=== PATIENT | male | born 1995 | race Caucasian/White ===

== ENCOUNTER 2018-03-07 23:13 | Emergency (ER) | payer OTHER ==
[~2018-03-07] VITALS: Ht 177.8 cm; Wt 57.2 kg
[2018-03-07 23:46] VITALS: BP 124/76
[2018-03-07] MEDS ORDERED: IBUPROFEN600 MG ORAL (23:49)
[2018-03-07 23:55] VITALS: BP 124/76
--- NOTE | 2018-03-08 06:00 | Emergency Room Report ---
History of Present Illness General Chief Complaint: Sore Throat Source: Patient Present Illness HPI 22-year-old male presents ED complaining of sore throat. Started 2 days ago. Pain is mild, 2 out of 10, nonradiating. Denies fevers or chills. Denies cough. Denies runny nose. Denies sick contacts or recent travel. No other aggravating relieving factors. Denies any other associated symptoms Allergies: Coded Allergies: SHELLFISH DERIVED (Verified Allergy, Unknown, 03/07/18) SHRIMP (Verified Allergy, Unknown, 03/07/18) Patient History Past Medical History: none Past Surgical History: none Pertinent Family History: none Social History: Denies: smoking, alcohol use, drug use Immunizations: UTD Reviewed Nursing Documentation: PMH: Agreed; PSxH: Agreed Nursing Documentation-PMH Past Medical History: No Stated History Review of Systems All Other Systems: negative except mentioned in HPI Physical Exam Vital Signs Date Time Temp Pulse Resp B/P (MAP) Pulse Ox O2 Delivery O2 Flow Rate FiO2 03/07/18 23:21 98.0 69 18 124/76 98 Room Air 98.1 Sp02 EP Interpretation: reviewed, normal General Appearance: no apparent distress, alert, GCS 15, non-toxic Head: normocephalic, atraumatic Eyes: bilateral eye normal inspection, bilateral eye PERRL ENT: hearing grossly normal, normal pharynx, no angioedema, normal voice Neck: full range of motion, supple/symm/no masses Respiratory: chest non-tender, lungs clear, normal breath sounds, speaking full sentences Cardiovascular #1: regular rate, rhythm, no edema Cardiovascular #2: 2+ carotid (R), 2+ carotid (L), 2+ radial (R), 2+ radial (L) , 2+ dorsalis pedis (R), 2+ dorsalis pedis (L) Gastrointestinal: normal bowel sounds, non tender, soft, non-distended, no guarding, no rebound Rectal: deferred Genitourinary: normal inspection, no CVA tenderness Musculoskeletal: back normal, gait/station normal, normal range of motion, non- tender Neurologic: alert, oriented x3, responsive, motor strength/tone normal, sensory intact, speech normal Psychiatric: judgement/insight normal, memory normal, mood/affect normal, no suicidal/homicidal ideation Reflexes: 3+ bicep (R), 3+ bicep (L), 3+ tricep (R), 3+ tricep (L), 3+ knee (R) , 3+ knee (L) Skin: normal color, no rash, warm/dry, well hydrated Lymphatic: no adenopathy Medical Decision Making Diagnostic Impression: Primary Impression: Pharyngitis Qualified Codes: J02.9 - Acute pharyngitis, unspecified ER Course Hospital Course 22 yo M presents to ED c/o sore throat Differential diagnoses include: URI, pharyngitis, otitis media, asthma Clinical course Patient placed on stretcher. After initial history, physical exam reveals a young male in no acute distress. Bilateral TM unremarkable. No pharyngeal erythema. No tonsillar exudates. No lymphadenopathy. lungs clear. abdomen soft. Clinical findings consistent with viral pharyngitis. patient safe for discharge with close followup with PMD Diagnosis - pharyngitis Stable and discharged home with Rx Motrin. Instructed to followup with PMD. Return to ED if symptoms recur or worsen Last Vital Signs Date Time Temp Pulse Resp B/P (MAP) Pulse Ox O2 Delivery O2 Flow Rate FiO2 03/07/18 23:55 98.1 69 18 124/76 98 Room Air 98.1 Status: improved Disposition: HOME, SELF-CARE Condition: Stable Scripts Ibuprofen* (MOTRIN*) 600 Mg Tablet 600 MG ORAL Q8H PRN for For Pain, #30 TAB 0 Refills Prov: Pierre Mora MD 03/07/18 Referrals: NOT CHOSEN IPA/,REFERRING (PCP) Patient Instructions: Pharyngitis, [id number] Pierre Mora MD Mar 08, 2018 06:00
[2018-03-08] MEDS ORDERED: BENADRYL25 MG ORAL (19:52)
[2018-03-08] MEDS ORDERED: ZYRTEC10 MG ORAL (19:52)
[2018-03-08] MEDS ORDERED: PREDNISONE20 MG ORAL (19:52)
== END 2018-03-08 | disposition home or self-care (01) ==
LOC: EMR 23:50
DX: J02.9 Acute pharyngitis, unspecified (principal); Z91.013 Allergy to seafood
CPT/HCPCS: 99283

== ENCOUNTER 2018-03-08 19:02 | Emergency (ER) | payer OTHER ==
[~2018-03-08] VITALS: Ht 177.8 cm; Wt 56.7 kg
[~2018-03-08 19:02] MED LIST: IBUPROFEN600 MG ORAL
[2018-03-08 19:38] VITALS: BP 121/83
[2018-03-08] MEDS ORDERED: BENADRYL25 MG ORAL (19:52)
[2018-03-08] MEDS ORDERED: PREDNISONE20 MG ORAL (19:52)
[2018-03-08] MEDS ORDERED: ZYRTEC10 MG ORAL (19:52)
--- NOTE | 2018-03-08 19:55 | Emergency Room Report ---
History of Present Illness General Chief Complaint: Allergic Reaction Source: Patient Present Illness HPI Patient presents with complaints of possible allergic reaction to shrimp He reports that about 3 hours ago he was exposed to steam coming off of a plate with shrimp on it And he has started to feel some itching on his hands and facial area Denies any short of breath Denies any chest pain Denies any back or flank pain Denies any other difficulty breathing Allergies: Coded Allergies: IBUPROFEN (Verified Allergy, Unknown, 03/08/18) SHELLFISH DERIVED (Verified Allergy, Unknown, 03/07/18) SHRIMP (Verified Allergy, Unknown, 03/07/18) Patient History Past Medical History: see triage record Pertinent Family History: none Reviewed Nursing Documentation: PMH: Agreed; PSxH: Agreed Nursing Documentation-PMH Past Medical History: No History, Except For Review of Systems All Other Systems: negative except mentioned in HPI Physical Exam Vital Signs Date Time Temp Pulse Resp B/P (MAP) Pulse Ox O2 Delivery O2 Flow Rate FiO2 03/08/18 19:18 98.1 95 20 121/83 95 Room Air 98.1 Sp02 EP Interpretation: reviewed, normal General Appearance: well appearing, no apparent distress Head: normocephalic, atraumatic Eyes: bilateral eye PERRL, bilateral eye EOMI ENT: hearing grossly normal, normal pharynx, TMs + canals normal, uvula midline , other - Airway patent Neck: full range of motion, supple, no meningismus, no bony tend Respiratory: lungs clear, normal breath sounds, no rhonchi, no respiratory distress, no retraction, no accessory muscle use Cardiovascular #1: normal peripheral pulses, regular rate, rhythm, no edema, no gallop, no JVD, no murmur Gastrointestinal: normal bowel sounds, non tender, soft, no mass, no organomegaly, non-distended, no guarding, no hernia, no pulsatile mass, no rebound Genitourinary: no CVA tenderness Musculoskeletal: normal inspection Neurologic: oriented x3, responsive, food clerk III-XII nml as tested, motor strength/ tone normal, sensory intact Psychiatric: mood/affect normal Skin: other - Mild erythema noted on the palmar aspect of the hands no obvious urticaria, Lymphatic: normal inspection, no adenopathy Medical Decision Making Diagnostic Impression: Primary Impression: Allergic reaction ER Course Patient appears to have reaction possibly to the shrimp At this time does not show any respiratory pathology Appears well clinically Patient was treated symptomatically nevertheless Continues to do well and will be continued on medications for home Patient will return with any change in symptoms or concerns Last Vital Signs Date Time Temp Pulse Resp B/P (MAP) Pulse Ox O2 Delivery O2 Flow Rate FiO2 03/08/18 19:38 98.1 95 20 121/83 95 Room Air 98.1 Status: improved Disposition: HOME, SELF-CARE Condition: Improved Scripts Cetirizine Hcl* (ZYRTEC*) 10 Mg Tablet 10 MG ORAL DAILY, #12 TAB 0 Refills Prov: Dirk Morgan DO 03/08/18 Diphenhydramine Hcl* (BENADRYL*) 25 Mg Capsule 25 MG ORAL Q6H PRN for Itching, #25 CAP Prov: Dirk Morgan DO 03/08/18 Prednisone* (PREDNISONE*) 20 Mg Tablet 20 MG ORAL BID, #10 TAB Prov: Dirk Morgan DO 03/08/18 Patient Instructions: Allergies, [id number], Food Allergy, [id number] Additional Instructions: Patient is provided with the discharge instructions notified to follow up with primary doctor in the next 2-3 days otherwise return to the er with any worsening symptoms. Please note that this report is being documented using [employer] technology. This can lead to erroneous entry secondary to incorrect interpretation by the dictating instrument. Dirk Morgan DO Mar 08, 2018 19:55
[2018-03-08 20:03] VITALS: BP 121/83
== END 2018-03-08 20:10 | disposition home or self-care (01) ==
LOC: EMR 19:30
DX: T78.40XA Allergy, unspecified, initial encounter (principal); X58.XXXA Exposure to other specified factors, initial encounter; L29.9 Pruritus, unspecified; Z88.6 Allergy status to analgesic agent; Z91.013 Allergy to seafood
CPT/HCPCS: 99284; J7512